=== PATIENT | male | born 1985 | race Caucasian/White ===

== ENCOUNTER 2020-05-22 21:57 | Inpatient (IN) ==
[2020-05-22] MEDS ORDERED: 0.9 % Sodium Chloride 2,000 ML ONE (22:16)
[2020-05-22] MEDS ORDERED: *HR* Heparin 10,000 UNIT/10 ML VIAL ONE (22:17)
[2020-05-22] MEDS ORDERED: Heparin 1,000 UNITS/500 mL 500 ML ONE (22:17)
[2020-05-22] MEDS ORDERED: ISOVUE-370 200 ML INFUS..BTL ONE (22:17)
[2020-05-22] MEDS ORDERED: Nitroglycerin 1,000 MCG/5 ML VIAL IV ONE (22:17)
[2020-05-22] MEDS ORDERED: *HR* Midazolam HCl 2 MG/2 ML VIAL ONE (23:20)
[2020-05-22] MEDS ORDERED: *HR* Atropine Sulfate 1 MG/10 ML SYRINGE ONE (23:21)
[2020-05-22] MEDS ORDERED: *HR* FentaNYL (PF) 100 MCG/2 ML VIAL ONE (23:21)
[2020-05-23] MEDS ORDERED: Naloxone 0.4 MG/ML INJ IVP PRN (00:23)
[2020-05-23] MEDS ORDERED: *HR* Atropine Sulfate 1 MG/10 ML SYRINGE ONE (01:09)
[2020-05-23] MEDS ORDERED: 0.9 % Sodium Chloride 1,000 ML ONE (01:10)
[2020-05-23 01:36] LABS: Amphetamine Screen,Urine Positive ng/mL (Cutoff=1000); Barbiturate Screen,Urine Negative ng/mL (Cutoff=200); Benzodiazepines Screen,Urine Positive ng/mL (Cutoff=200); Cannabinoid Screen,Urine Positive ng/mL (Cutoff = 50); Cocaine Screen,Urine Negative ng/mL (Cutoff= 300); Opiate Screen,Urine Negative ng/mL (Cutoff=300); Phencyclidine Screen,Urine Negative ng/mL (Cutoff=25)
[2020-05-23 02:32] LABS: Basophils # 0.1 K/mcL (0.0-0.2); Basophils % 0.3 %; Eosinophils # 0.1 K/mcL (0.0-0.6); Eosinophils % 0.3 %; Hemoglobin 14.5 g/dL (12.9-16.9); Immature Granulocytes % 0.3 % (0-4); Lymphocytes # 1.9 K/mcL (0.6-4.6); Lymphocytes % 12.6 %; Mean Corpuscular HGB Conc 33.7 g/dL (31.6-35.5); Mean Corpuscular Hemoglobin 31.9 pg (28.0-33.3); Mean Corpuscular Volume 94.5 fL (83.0-100.0); Mean Platelet Volume 8.9 fL (9.4-12.4); Monocytes # 0.6 K/mcL (0.0-1.3); Neutrophils # 12.3 K/mcL (1.6-8.9); Platelet Count 317 K/mcL (140-400); Red Blood Count 4.55 M/mcL (4.19-5.50); Red Cell Distribution Width 14.3 % (11.5-14.5); Segmented Neutrophils % 82.5 %; White Blood Count 14.9 K/mcL (4.3-11.1)
[2020-05-23 02:35] LABS: VBG Ionized Calcium 1.18 mmol/L (1.15-1.35)
[2020-05-23 02:59] LABS: Alanine Aminotransferase 16 Units/L (7-52); Albumin 4.3 g/dL (3.5-5.7); Albumin/Globulin Ratio 1.7 (1.1-2.2); Alkaline Phosphatase 65 Units/L (34-104); Aspartate Amino Transferase 15 Units/L (13-39); BUN/Creatinine Ratio 10 (6-26); Bilirubin,Total 0.4 mg/dL (0.3-1.0); Blood Urea Nitrogen 8 mg/dL (6-20); Calcium 9.1 mg/dL (8.6-10.3); Carbon Dioxide 23 mEq/L (23-29); Chloride 107 mEq/L (98-107); Globulin 2.6 g/dL (2.4-3.5); Glucose 138 mg/dL (70-105); Magnesium 1.8 mg/dL (1.6-2.6); Osmolality,Calculated 289 (280-300); Sodium 139 mEq/L (136-145); Total Protein 6.9 g/dL (6.4-8.9); eGFR For African Americans > 60 (> 60); eGFR For Non-African Americans > 60 (> 60)
[2020-05-23] MEDS ORDERED: Perflutren Lipid Microsphere 1.3 ML in 0.9 % Sodium Chloride 8.7 ML IVP PRN (08:39)
[2020-05-23] MEDS: Aspirin 81 MG TAB.CHEW PO SCH (08:55)
[2020-05-23] MEDS: *HR* Ticagrelor 90 MG TABLET PO SCH ×2 (08:55→21:14)
[2020-05-23] MEDS: Nicotine 21 MG PATCH.TD24 TD SCH (12:58)
[2020-05-23] MEDS: *HR* Heparin 5,000 UNIT/ML VIAL SQ SCH (18:22)
[2020-05-24] MEDS: *HR* Heparin 5,000 UNIT/ML VIAL SQ SCH (05:08)
[2020-05-24 05:23] LABS: Basophils # 0.1 K/mcL (0.0-0.2); Basophils % 0.5 %; Eosinophils # 0.3 K/mcL (0.0-0.6); Eosinophils % 1.9 %; Hematocrit 43.2 % (37.5-50.1); Hemoglobin 14.3 g/dL (12.9-16.9); Immature Granulocytes % 0.3 % (0-4); Lymphocytes # 3.3 K/mcL (0.6-4.6); Lymphocytes % 22.5 %; Mean Corpuscular HGB Conc 33.1 g/dL (31.6-35.5); Mean Corpuscular Hemoglobin 30.6 pg (28.0-33.3); Mean Corpuscular Volume 92.3 fL (83.0-100.0); Mean Platelet Volume 8.8 fL (9.4-12.4); Monocytes % 6.8 %; Neutrophils # 9.9 K/mcL (1.6-8.9); Platelet Count 332 K/mcL (140-400); Red Blood Count 4.68 M/mcL (4.19-5.50); White Blood Count 14.5 K/mcL (4.3-11.1)
[2020-05-24 05:53] LABS: BUN/Creatinine Ratio 15 (6-26); Blood Urea Nitrogen 12 mg/dL (6-20); Calcium 9.2 mg/dL (8.6-10.3); Carbon Dioxide 24 mEq/L (23-29); Chloride 104 mEq/L (98-107); Glucose 109 mg/dL (70-105); Osmolality,Calculated 286 (280-300); Potassium 3.6 mEq/L (3.5-5.1); Sodium 138 mEq/L (136-145); eGFR For African Americans > 60 (> 60); eGFR For Non-African Americans > 60 (> 60)
[2020-05-24 05:54] LABS: Thyroid Stimulating Hormone 1.361 mcIU/mL (0.340-5.600)
[2020-05-24] MEDS: *HR* Ticagrelor 90 MG TABLET PO SCH (08:32)
[2020-05-24] MEDS: Aspirin 81 MG TAB.CHEW PO SCH (08:32)
[2020-05-24] MEDS: Nicotine 21 MG PATCH.TD24 TD SCH (08:33)
[2020-05-24 12:34] VITALS: BP 131/77
== END 2020-05-24 13:35 | disposition home or self-care (01) | DRG 192 ==
LOC: ICNU
PROVIDERS: ADMIT Internal Medicine Cardiovascular Disease; ATTEND Internal Medicine Cardiovascular Disease

== ENCOUNTER 2021-03-22 03:07 | Observation (INO) ==
[2021-03-22] MEDS ORDERED: *HR* HYDROcodone/Acet 5/325 mg TABLET PO PRN (03:20)
[2021-03-22] MEDS ORDERED: Acetaminophen 325 MG TABLET PO PRN ×2 (03:20→17:20)
[2021-03-22] MEDS ORDERED: Naloxone 0.4 MG/ML INJ IVP PRN ×2 (03:20→17:20)
[2021-03-22] MEDS ORDERED: *HR* OxyCODONE Immed Rel 5 MG TABLET PO PRN (03:20)
[2021-03-22] MEDS ORDERED: Ondansetron 4 MG/2 ML VIAL IVP PRN ×2 (03:20→13:27)
[2021-03-22] MEDS ORDERED: *HR* Dextrose 50 % in Water (Syg) 50 ML SYRINGE IVP PRN (03:21)
[2021-03-22] MEDS ORDERED: Dextrose Gel 15 GM/37.5 ML TUBE PO PRN ×3 (03:21→17:20)
[2021-03-22] MEDS ORDERED: D5% in Water 1,000 ML IVC PRN ×2 (03:21→17:20)
[2021-03-22] MEDS ORDERED: Saliva Stimulant 44.3ml BOTTLE PO PRN ×2 (03:36→17:20)
[2021-03-22] MEDS ORDERED: *HR* Promethazine 25 MG/ML VIAL IM PRN (03:37)
[2021-03-22] MEDS: Ringers Solution, Lactated 1,000 ML IVC SCH ×2 (03:38→14:02)
[2021-03-22] MEDS ORDERED: Nicotine 14 MG PATCH.TD24 TD SCH (03:45)
[2021-03-22] MEDS ORDERED: Ipratropium/Albuterol Neb 3 ML IH PRN ×2 (04:00→17:20)
[2021-03-22 06:27] LABS: Basophils # 0.1 K/mcL (0.0-0.2); Basophils % 0.7 %; Eosinophils # 1.4 K/mcL (0.0-0.6); Eosinophils % 11.3 %; Hematocrit 43.2 % (37.5-50.1); Hemoglobin 14.4 g/dL (12.9-16.9); Immature Granulocytes % 0.3 % (0-4); Lymphocytes # 2.1 K/mcL (0.6-4.6); Lymphocytes % 17.2 %; Mean Corpuscular HGB Conc 33.3 g/dL (31.6-35.5); Mean Corpuscular Hemoglobin 30.8 pg (28.0-33.3); Mean Corpuscular Volume 92.5 fL (83.0-100.0); Monocytes # 1.4 K/mcL (0.0-1.3); Monocytes % 11.6 %; Neutrophils # 7.1 K/mcL (1.6-8.9); Platelet Count 319 K/mcL (140-400); Red Blood Count 4.67 M/mcL (4.19-5.50); Red Cell Distribution Width 13.6 % (11.5-14.5); Segmented Neutrophils % 58.9 %; White Blood Count 12.1 K/mcL (4.3-11.1)
[2021-03-22 06:38] LABS: BUN/Creatinine Ratio 7 (6-26); Blood Urea Nitrogen 11 mg/dL (6-20); Calcium 8.5 mg/dL (8.6-10.3); Carbon Dioxide 23 mEq/L (23-29); Chloride 108 mEq/L (98-107); Glucose 86 mg/dL (70-105); Magnesium 1.8 mg/dL (1.6-2.6); Osmolality,Calculated 287 (280-300); Phosphorous 2.9 mg/dL (2.7-4.5); Potassium 3.6 mEq/L (3.5-5.1); Sodium 139 mEq/L (136-145); eGFR For African Americans > 60 (> 60); eGFR For Non-African Americans 52 (> 60)
[2021-03-22 06:45] LABS: INR 1.1; Prothrombin Time 12.3 Seconds (9.4-12.1)
[2021-03-22] MEDS ORDERED: 0.9 % Sodium Chloride 1,000 ML IVC ONE (09:26)
[2021-03-22] MEDS ORDERED: CeFAZolin Syr 2,000MG/20 ML 2,000 MG/20 ML SYRINGE IVPB ONE (10:07)
[2021-03-22] MEDS ORDERED: Famotidine 20 MG/2 ML VIAL ONE (12:00)
[2021-03-22] MEDS ORDERED: Acetaminophen IV 1,000 MG/100 ML BAG IVPB ONE (12:00)
[2021-03-22] MEDS ORDERED: *HR* Midazolam HCl 2 MG/2 ML VIAL ONE (12:18)
[2021-03-22] MEDS ORDERED: *HR* FentaNYL (PF) 100 MCG/2 ML VIAL ONE (12:18)
[2021-03-22] MEDS ORDERED: *HR* Propofol 200 MG/20 ML VIAL IVP ONE (12:18)
[2021-03-22] MEDS ORDERED: Ondansetron 4 MG/2 ML VIAL ONE (12:19)
[2021-03-22] MEDS ORDERED: Lidocaine -MPF 2% 5 ML VIAL ONE (12:19)
[2021-03-22] MEDS ORDERED: Dexmedetomidine HCl 400 MCG/100 ML MLS IVC ONE (12:28)
[2021-03-22] MEDS ORDERED: Ketamine HCL *QUVA* 50mg (1mL) SYRINGE ONE (12:38)
[2021-03-22] MEDS ORDERED: Isovue-300 50ML VIAL ONE (12:47)
[2021-03-22] MEDS ORDERED: *HR* Labetalol 20 MG/4 ML SYRINGE IVP PRN (13:27)
[2021-03-22] MEDS ORDERED: *HR* HYDROmorphone PF 0.5 MG/0.5 ML SYRINGE IVP PRN (13:27)
[2021-03-22] MEDS ORDERED: Lidocaine 1% 20 ML MDV ONE (13:30)
[2021-03-22] MEDS ORDERED: Lidocaine Jelly 11 ml Syringe ONE (13:38)
[2021-03-22] MEDS ORDERED: *HR* HYDROMORPHONE 2 MG/ML VIAL ONE (13:42)
[2021-03-22] MEDS ORDERED: *HR* Belladonna Alkaloids/Opium 60 MG RECTAL SUPPOSITORY RC ONE (13:52)
[2021-03-22] MEDS ORDERED: 0.9 % Sodium Chloride 1,000 ML IV ONE (15:05)
[2021-03-22] MEDS ORDERED: Ringers Solution, Lactated 1,000 ML IVC SCH (17:20)
[2021-03-22] MEDS: *HR* HYDROcodone/Acet 5/325 mg TABLET PO PRN (19:32)
[2021-03-23] MEDS: *HR* HYDROcodone/Acet 5/325 mg TABLET PO PRN ×2 (01:56→08:22)
[2021-03-23 07:37] VITALS: BP 123/78; PULSE 76; TEMP 98.4; O2SAT 97
[2021-03-23] MEDS ORDERED: Nicotine 14 MG PATCH.TD24 TD SCH (09:00)
[2021-03-23 11:04] LABS: BUN/Creatinine Ratio 12 (6-26); Blood Urea Nitrogen 13 mg/dL (6-20); Calcium 9.2 mg/dL (8.6-10.3); Carbon Dioxide 25 mEq/L (23-29); Chloride 106 mEq/L (98-107); Glucose 113 mg/dL (70-105); Osmolality,Calculated 289 (280-300); Potassium 3.5 mEq/L (3.5-5.1); Sodium 139 mEq/L (136-145); eGFR For African Americans > 60 (> 60); eGFR For Non-African Americans > 60 (> 60)
[2021-03-23] MEDS ORDERED: Ketorolac 30 MG/ML VIAL IVP ONE (13:02)
== END 2021-03-23 14:16 | disposition home or self-care (01) ==
LOC: 3BNU → SUATTDRO 03:07
PROVIDERS: ADMIT Internal Medicine; ATTEND Registered Nurse